=== PATIENT | male | born 1955 | race Caucasian/White ===

== ENCOUNTER 2020-02-12 10:58 | Inpatient (IN) | payer MEDICARE, OTHER ==
[~2020-02-12] VITALS: Ht 188 cm; Wt 145.3 kg
[~2020-02-12 10:58] MED LIST: DESV50TA PO; LEVE500T53 PO; LEVO1CAP3 PO; LORA2TAB99 PO; METF500T17 PO; OMEP-110 PO; ONDA8TAB12 PO; OXYC20TA2 PO; OXYM40TA13 PO; PIOG15TA22 PO; TAMS-11 PO
[2020-02-12] MEDS ORDERED: ASPIRIN 81 MG TABLET CHEW ONE (11:20)
[2020-02-12] MEDS ORDERED: NITROGLYCERIN SINGLE TAB 0.4 MG SL PRN (11:30)
[2020-02-12] MEDS ORDERED: SODIUM CHLORIDE FLUSH 10ML SYR IVF ONE (11:30)
[2020-02-12] MEDS ORDERED: ASPIRIN 81 MG TABLET CHEW PO ONE (11:30)
[2020-02-12] MEDS ORDERED: NITROGLYCERIN SINGLE TAB 0.4 MG SL ONE (11:43)
[2020-02-12 11:45] LABS: ALBUMIN 3.6 g/dL (3.4-5.0); ANION GAP 7 mmol/L (5-15); CHLORIDE 105 mmol/L (98-107); CREATININE 0.89 mg/dL (0.7-1.3)
--- NOTE | 2020-02-12 11:46 | NUR ---
PT STATES LT SIDE CP THAT STARTED AT APPROX 0915 THIS AM WHILE AT HIS PRIMARY MD DOCTOR'S APPOINTMENT. PT PLACED ON ALL MONITORS, VSS. IV STARTED PER ORDERS AND ASA GIVEN. PT STATES CP AT 12/22, MEDICATED WITH NITRO SL PER ORDERS, WILL REASSESS. CALL LIGHT IN REACH, CONT TO MONITOR.
[2020-02-12 11:49] LABS: TROPONIN I < 0.015 ng/mL (0.000-0.045)
[2020-02-12 11:51] LABS: MEAN CORPUSCULAR HEMOGLOBIN 21.3 pg (27.5-34.5); MEAN CORPUSCULAR HGB CONC 30.6 g/dL (33.2-36.2); MEAN PLATELET VOLUME 8.2 fL (7.4-10.4); PLATELET COUNT 274 x10^3/uL (130-400); RED BLOOD COUNT 5.04 x10^6/uL (4.38-5.82); RED CELL DISTRIBUTION WIDTH 19.3 % (9.4-14.8)
[2020-02-12 11:54] LABS: BASOPHILS # (AUTO) 0.05 x10^3/uL (0-0.1); BASOPHILS % (AUTO) 1 % (0-1); EOSINOPHILS # (AUTO) 0.13 x10^3/uL (0-0.4); EOSINOPHILS % (AUTO) 2 % (1-7); LYMPHOCYTES # (AUTO) 1.06 x10^3/uL (1-3.4); LYMPHOCYTES % (AUTO) 15 % (22-44); MD MORPH REVIEW ONLY; MONOCYTES # (AUTO) 0.47 x10^3/uL (0.2-0.8); MONOCYTES % (AUTO) 6 % (2-9); NEUTROPHILS # (AUTO) 5.61 x10^3/uL (1.8-6.8); NEUTROPHILS % (AUTO) 77 % (42-75)
[2020-02-12 11:55] LABS: ANISOCYTOSIS 2+; HYPOCHROMIA 2+
[2020-02-12 11:56] LABS: MICROCYTOSIS 3+; POLYCHROMASIA 1+; TEAR DROPS 1+
[2020-02-12 11:57] LABS: OVALOCYTES 2+
[2020-02-12 11:58] LABS: <PLATELET ESTIMATE> ADEQUATE; <PLT MORPHOLOGY> NORMAL PLT MORPH
--- NOTE | 2020-02-12 12:07 | NUR ---
PT STATES PAIN DECREASED WITH NITRO DOSE, PAIN WENT FROM 6/10 TO 2/10 NOW. ERMD AWARE. TECH AT BEDSIDE FOR REPEAT EKG. PT REMAINS ON MONITORS, VSS. CONT TO MONITOR.
--- NOTE | 2020-02-12 12:47 | NUR ---
CARDIOLOGY AT BEDSIDE FOR ASSESSMENT. PT REMAINS ON MONITORS, VSS. WILL FOLLOW ORDERS.
--- NOTE | 2020-02-12 12:57 | NUR ---
RECEIVED REPORT FROM DHARA MOTLEY. PT RESTING ON [facility].
[2020-02-12] MEDS ORDERED: LISINOPRIL 5 MG TABLET PO ONE (13:00)
[2020-02-12] MEDS ORDERED: LISINOPRIL 10 MG TABLET PO ONE (13:00)
[2020-02-12] MEDS ORDERED: SODIUM CHLORIDE FLUSH 10ML SYR IVF PRN (13:00)
[2020-02-12] MEDS ORDERED: MORP30TA81 PO (13:06)
[2020-02-12] MEDS ORDERED: MAGN400T36 PO (13:06)
[2020-02-12] MEDS ORDERED: PRAM0.5T5 PO (13:06)
[2020-02-12] MEDS ORDERED: CLON1TAB PO (13:06)
[2020-02-12] MEDS ORDERED: ATEN25TA PO (13:06)
--- NOTE | 2020-02-12 13:46 | NUR ---
Break RN note: Pt states that he would now like to do the angiogram. Dr. Grimes paged to update her on this. Discussed POC with pt. Pt denies other needs. Pt standing at side of bed, states this is position of comfort. Pt ambulatory with steady gait. Continuous heart and oxygen monitors are in place.
--- NOTE | 2020-02-12 13:55 | NUR ---
DR. VALENCIA CALLED BACK AND NOTIFIED THAT PT REQUESTS TO HAVE ANGIOGRAM DONE NOW INSTEAD OF TRENDING TROPS AND STRESS TEST IN AM. PER DR. VALENCIA WILL SEE WHAT CAN BE DONE. IS UNSURE IF ANGIOGRAM CAN BE DONE TODAY. NOTIFIED PT HAS REMAINED NPO IN ED.
--- NOTE | 2020-02-12 14:00 | NUR ---
DR. VALENCIA CALLED AND WAS ABLE TO ADD PT TO [facility] CLAIM ADJUSTER SCHEDULE FOR ANGIOGRAM. PT CONSENT SIGNED AND PLACED ON CHART. PT AWARE TO REMAIN NPO.
--- NOTE | 2020-02-12 14:06 | NUR ---
PT RESTING ON GURNEY. NADN. B[facility].
--- NOTE | 2020-02-12 14:45 | NUR ---
[facility] AT BEDSIDE.
[2020-02-12] MEDS ORDERED: POLYETHYLENE GLYCOL 17 GM PACKET PO PRN (15:00)
[2020-02-12] MEDS ORDERED: DOCUSATE 100 MG CAPSULE PO PRN (15:00)
[2020-02-12] MEDS ORDERED: BISACODYL 10 MG SUPP PR PRN (15:00)
[2020-02-12] MEDS ORDERED: ACETAMINOPHEN 325 MG TABLET PO PRN (15:00)
[2020-02-12] MEDS ORDERED: ONDANSETRON 2MG/ML, 2ML IVPush PRN (15:00)
--- NOTE | 2020-02-12 15:34 | NUR ---
REPORT GIVEN TO LUIGI SANCHEZ RN. ALL QUESTIONS ANSWERED. AWARE OF POC FOR ANGIOGRAM TODAY AND TO LEAVE PT NPO. AWAITING PT TRANSPORT.
[2020-02-12 15:40] LABS: TROPONIN I < 0.015 ng/mL (0.000-0.045)
[2020-02-12] MEDS ORDERED: MIDAZOLAM 1 MG/ML, 5ML ONE (15:55)
[2020-02-12] MEDS ORDERED: HEPARIN 1,000 UNITS/ML, 10ML ONE (15:56)
[2020-02-12] MEDS ORDERED: VERAPAMIL 2.5 MG/ML, 2ML ONE (15:56)
[2020-02-12] MEDS ORDERED: BIVALIRUDIN 250 MG ONE (15:56)
[2020-02-12] MEDS ORDERED: LIDOCAINE-MPF 1%, 5ML ONE (15:56)
[2020-02-12] MEDS ORDERED: FENTANYL PF 100 MCG/2ML ONE (15:56)
[2020-02-12] MEDS: metFORMIN 500 MG TABLET PO SCH ×2 (16:00→21:10)
[2020-02-12] MEDS: SODIUM CHLORIDE 0.9% 1,000 ML IV SCH ×2 (16:55→23:33)
[2020-02-12] MEDS: LEVETIRACETAM 500 MG TABLET PO SCH ×2 (17:27→21:24)
[2020-02-12] MEDS: OXYcodone IR 5MG TABLET PO SCH ×2 (17:27→21:25)
[2020-02-12 18:16] VITALS: BP 119/78
[2020-02-12] MEDS: CARVEDILOL 3.125 MG TABLET PO SCH (18:18)
[2020-02-12] MEDS: HEPARIN 5,000 UNITS/ML, 1ML SQ SCH (18:18)
[2020-02-12 19:20] VITALS: BP 127/80
[2020-02-12] MEDS ORDERED: MAGNESIUM OXIDE 400 MG TABLET PO SCH (21:00)
[2020-02-12 21:07] LABS: TROPONIN I < 0.015 ng/mL (0.000-0.045)
[2020-02-12] MEDS: FAMOTIDINE 20 MG/2 ML IVPush SCH (21:25)
[2020-02-13 01:43] VITALS: BP 124/77
[2020-02-13] MEDS: OXYcodone IR 5MG TABLET PO SCH ×2 (02:23→09:09)
[2020-02-13] MEDS: HEPARIN 5,000 UNITS/ML, 1ML SQ SCH ×2 (02:23→11:51)
[2020-02-13 05:47] LABS: BASOPHILS # (AUTO) 0.02 x10^3/uL (0-0.1); BASOPHILS % (AUTO) 0 % (0-1); EOSINOPHILS # (AUTO) 0.15 x10^3/uL (0-0.4); EOSINOPHILS % (AUTO) 2 % (1-7); LYMPHOCYTES # (AUTO) 1.35 x10^3/uL (1-3.4); LYMPHOCYTES % (AUTO) 22 % (22-44); MD NO; MEAN CORPUSCULAR HEMOGLOBIN 21.5 pg (27.5-34.5); MEAN CORPUSCULAR HGB CONC 30.9 g/dL (33.2-36.2); MEAN PLATELET VOLUME 8.3 fL (7.4-10.4); MONOCYTES # (AUTO) 0.57 x10^3/uL (0.2-0.8); MONOCYTES % (AUTO) 9 % (2-9); NEUTROPHILS # (AUTO) 4.09 x10^3/uL (1.8-6.8); NEUTROPHILS % (AUTO) 66 % (42-75); PLATELET COUNT 218 x10^3/uL (130-400); RED BLOOD COUNT 4.32 x10^6/uL (4.38-5.82); RED CELL DISTRIBUTION WIDTH 19.2 % (9.4-14.8)
[2020-02-13] MEDS: metFORMIN 500 MG TABLET PO SCH ×2 (05:55→11:00)
[2020-02-13 05:56] LABS: ALBUMIN 2.7 g/dL (3.4-5.0); ANION GAP 6 mmol/L (5-15); CALCIUM 7.8 mg/dL (8.5-10.1); CHLORIDE 104 mmol/L (98-107)
[2020-02-13] MEDS: CARVEDILOL 3.125 MG TABLET PO SCH (06:02)
[2020-02-13] MEDS: LEVETIRACETAM 500 MG TABLET PO SCH ×2 (06:02→11:50)
[2020-02-13 06:06] LABS: ALANINE AMINOTRANSFERASE 17 U/L (12-78); ALKALINE PHOSPHATASE 114 U/L (45-117); BILIRUBIN,TOTAL 0.3 mg/dL (0.2-1.0); CHOL/HDL RATIO 3.2; CHOLESTEROL, TOTAL 162 mg/dL (140-239); CREATININE 0.77 mg/dL (0.7-1.3); HDL CHOL % 31 % (26-37); HDL CHOLESTEROL (DIRECT) 51 mg/dL (40-60); LDL CHOLESTEROL,CALCULATED 86 mg/dL (54-169); LDL/HDL RATIO 1.7 (0.5-3.0); TOTAL PROTEIN 5.7 g/dL (6.4-8.2); TRIGLYCERIDES 127 mg/dL (50-200); VLDL CHOLESTEROL 25 mg/dL (0-25)
[2020-02-13 06:44] VITALS: BP 120/66
[2020-02-13] MEDS: SODIUM CHLORIDE 0.9% 1,000 ML IV SCH (08:55)
[2020-02-13] MEDS ORDERED: OMEPRAZOLE 20 MG CAPSULE.DR PO SCH (09:00)
[2020-02-13] MEDS ORDERED: TEMPLATE NON-FORMULARY MED. (Desvenlafaxine Succinate** (Pristiq Er**) 100 MG) HOMEMEDPO SCH (09:00)
[2020-02-13] MEDS: FAMOTIDINE 20 MG/2 ML IVPush SCH (09:10)
[2020-02-13 09:28] LABS: TROPONIN I 0.022 ng/mL (0.000-0.045)
[2020-02-13 13:33] VITALS: BP 113/68
== END 2020-02-13 15:46 | disposition home or self-care (01) | DRG 392 ==
LOC: ED 11:42 → EDIP 12:51 → 5SO 16:51
PROVIDERS: ADMIT Hospitalist; ATTEND Hospitalist
PROC: 4A023N7 Measurement of Cardiac Sampling and Pressure, Left Heart, Percutaneous Approach (ICD-10-PCS; principal; 2020-02-12)
PROC: B211YZZ Fluoroscopy of Multiple Coronary Arteries using Other Contrast (ICD-10-PCS; 2020-02-12)
PROC: B215YZZ Fluoroscopy of Left Heart using Other Contrast (ICD-10-PCS; 2020-02-12)
DX: K44.9 Diaphragmatic hernia without obstruction or gangrene (principal); Z68.41 Body mass index [BMI] 40.0-44.9, adult; R07.89 Other chest pain; G89.4 Chronic pain syndrome; F41.9 Anxiety disorder, unspecified; E66.01 Morbid (severe) obesity due to excess calories; K21.9 Gastro-esophageal reflux disease without esophagitis; F32.9 Major depressive disorder, single episode, unspecified; Z66 Do not resuscitate; G25.81 Restless legs syndrome; E11.40 Type 2 diabetes mellitus with diabetic neuropathy, unspecified; Z98.84 Bariatric surgery status; Z80.42 Family history of malignant neoplasm of prostate; Z88.8 Allergy status to other drugs, medicaments and biological substances; Z79.899 Other long term (current) drug therapy; Z91.041 Radiographic dye allergy status
CPT/HCPCS: 36415; 71045; 80048; 80053; 80061; 82040; 83036; 83735; 83880; 84100; 84443; 84484; 85025; 93005; 93306; 93458; 99156; 99285; C1769; C1894; G0378; J0583; J1644; J2250; J3010; J3490; Q9967